=== PATIENT | male | born 1975 | race African-American/Black ===

== ENCOUNTER 2016-04-06 15:29 | Emergency (ER) | payer SELFPAY ==
[~2016-04-06] VITALS: Ht 172.7 cm; Wt 72.6 kg
[2016-04-06 15:40] VITALS: BP 155/102
[2016-04-06] MEDS ORDERED: LIDOCAINE 1% / SOD BICARB 8.4% 20 ML VIAL. IJ ONE (15:45)
--- NOTE | 2016-04-06 15:47 | PHYS DOC ---
Past Medical History Past Medical History: Hypertension Past Surgical History: No Surgical History Alcohol Use: None Drug Use: None Adult General Chief Complaint Chief Complaint: LACERATION/AVULSION HPI HPI Patient is a 40 year old Male with history of hypertension who presents today with the right pinky finger laceration, patient states he got cut accidentally with a light bulb. His tetanus is up-to-date. Review of Systems Review of Systems Constitutional: Denies fever or chills [] Musculoskeletal: Denies back pain or joint pain [] Integument:right pinky finger laceration, Neurologic: Denies headache, focal weakness or sensory changes [] Endocrine: Denies polyuria or polydipsia [] Current Medications Current Medications Current Medications Medications (Trade) Dose Ordered Sig/Tarik Start Time Stop Time Status Last Admin Dose Admin Lidocaine/Sodium Bicarbonate (Buffered Lidocaine 1%) 20 ml 1X ONCE 04/06/16 15:45 04/06/16 15:46 DC Allergies Allergies Allergies Coded Allergies Type Severity Reaction Last Updated Verified No Known Drug Allergies 03/24/13 No Physical Exam Physical Exam Constitutional: Well developed, well nourished, no acute distress, non-toxic appearance. [] Skin: Also aspect of the right pinky finger distal and with a laceration approximately 2 cm long, this no tendon involvement. Full range of motion to the right pinky finger. Adequate flexion and extension of the right pinky finger at the MIP PIP and DIP joints. Adequate ulnar sensation to the right pinky finger. +2 right radial pulse. Cap refill less than 2 seconds the right pinky finger. Back: No tenderness, no CVA tenderness. [] Extremities: No tenderness, no cyanosis, no clubbing, ROM intact, no edema. [] Neurologic: Alert and oriented X 3, normal motor function, normal sensory function, no focal deficits noted. [] Psychologic: Affect normal, judgement normal, mood normal. [] Current Patient Data Vital Signs Vital Signs Date Time Temp Pulse Resp B/P Pulse Ox O2 Delivery O2 Flow Rate FiO2 04/06/16 15:40 97.7 69 16 100 Room Air 97.7 EKG EKG [] Course & Med Decision Making Course & Med Decision Making Pertinent Labs and Imaging studies reviewed. (See chart for details) Patient is in the ED with right pinky finger laceration after being cut by a light bulb. His tetanus is up-to-date. I did attempt to close the laceration with stitches, patient did not tolerate the numbing medicine. The laceration was cleaned and closed with Dermabond by me. Steri-Strips were applied to the area. Follow-up with the provided return precautions and discharged in stable condition. Dragon Disclaimer Dragon Disclaimer This electronic medical record was generated, in whole or in part, using a voice recognition dictation system. Departure Departure Impression: Primary Impression: Laceration of finger of right hand Disposition: HOME, SELF-CARE Condition: STABLE Referrals: NO PCP (PCP) Follow-up with your doctor in 1-2 weeks as needed. Patient Instructions: Fingertip Laceration Additional Instructions: You have lacerations to right pinky finger. The laceration was closed with Dermabond. Keep the area clean and dry. The Steri-Strips will also follow from their own. Monitor the area for signs and symptoms of infection including increased redness warmth or odor drainage from the area and return to the ED if they occur. Problem Qualifiers Primary Impression: Laceration of finger of right hand Encounter type: initial encounter Qualified Code: S61.219A - Laceration without foreign body of unspecified finger without damage to nail, initial encounter MARCO ANTONIO ESPINAL APRN Apr 06, 2016 15:47
== END 2016-04-06 16:12 | disposition home or self-care (01) ==
LOC: ER 15:29
DX: S61.216A Laceration without foreign body of right little finger without damage to nail, initial encounter (principal); I10 Essential (primary) hypertension; W25.XXXA Contact with sharp glass, initial encounter; Y93.89 Activity, other specified; Y92.89 Other specified places as the place of occurrence of the external cause; Y99.8 Other external cause status
CPT/HCPCS: 12001; 99283-25